=== PATIENT | female | born 1980 | race Caucasian/White ===

== ENCOUNTER → 2017-09-26 | Outpatient (CLI) | payer OTHER ==
--- NOTE | 2017-09-26 16:01 | PCVCIMAG ---
APPROVED REPORT Study performed: 09/26/2017 14:25:03 Exam: Stress Echocardiogram Indication: Chest pressure, chest pain, fam hx CAD, tobacco use Patient Location: Echo lab Stress Nurse: Asha Lau RN Status: routine Ht: 5 ft 4 in HR: 81 bpm BP: 106/70 mmHg Rhythm: NSR Procedure The patient underwent an Exercise Stress Test using the Rosales Protocol. Blood pressure, heart rate, and EKG were monitored. An Echocardiogram was performed by emergency response technician in four stages in quad fashion. At peak stress, four selected images were obtained and placed side by side with resting images for comparison. Stress Test Details Stress Test: Exercise stress testing was performed using a Rosales protocol. HR Resting HR: 81 bpmMax Heart Rate (APMHR): 181 bpm Max HR Achieved: 173 bpmTarget HR (85% APMHR): 153 bpm % of APMHR: 95 Recovery HR: 118 bpm HR response to stress: Normal HR response to stress BP Resting BP: 106/70 mmHg Max BP: 140/72 mmHg Recovery BP: 120/66 mmHg ECG Resting ECG: Sinus Rhythm Stress ECG: Sinus Rhythm ST Change: Normal Maximum ST Deviation: 0 mm Arrhythmia: None Recovery ECG: Sinus Rhythm Recovery ST Change: Normal Recovery ST Deviation: 0 mm Recovery Arrhythmia: None Clinical Reason for Termination: Maximal effort Stress Symptoms: none Exercise duration: 10 min 30 sec Highest Stage Achieved: Stage 4: 4.2 mph at 16% grade. Exercise capacity: 13.4 METs Overall Exercise Capacity for Age: Good Scale: Active Angina Score: None Stress ECG Conclusion Gibbs Treadmill Score is 10.0 which is Low risk. Pre-Stress Echo The resting Echocardiogram showed normal left ventricular contractility with an estimated Ejection Fraction of about >55%. Normal wall motion in all segments on baseline images. Post-Stress Echo The stress Echocardiogram showed normal left ventricular contractility with an estimated Ejection Fraction of about 65%. Normal augmentation of wall motion in all segments on post stress images. Clinical No clinical or ECG evidence for ischemia. Conclusion Clinical Response: Non-ischemic Exercise Capacity: Average Stress ECG Response: Non-ischemic Stress Echo Images: Non-ischemic The left ventricle is normal in size and wall thickness in both the rest and stress images. Normal stress echocardiogram with maximal exercise stress. Other Information Study Quality: Adequate <Conclusion> The left ventricle is normal in size and wall thickness in both the rest and stress images. Normal stress echocardiogram with maximal exercise stress.
== END | disposition home or self-care (01) ==
LOC: PCVCIMAG 14:57
PROVIDERS: ATTEND Internal Medicine
DX: I25.10 Atherosclerotic heart disease of native coronary artery without angina pectoris (principal); R07.9 Chest pain, unspecified; Z72.0 Tobacco use
CPT/HCPCS: 93325; 93351